=== PATIENT | female | born 1985 | race Caucasian/White ===

== ENCOUNTER 2018-08-23 10:30 | Emergency (ER) | payer SELFPAY ==
--- NOTE | 2018-08-23 10:37 | ED Physician Documentation ---
Fall - HISTORIAN Historian: patient - HPI Stated Complaint: right hand and wrist pain - fall Chief Complaint: Fall Onset: just prior to arrival Where: home Context: slipped (down 3 stairs ) Associated Symptoms:: no loss of consciousness Location of Pain/Injury: upper extremity (hand/wrist (r)) Injury to Right Extremity: wrist, hand Injury to Left Extremity: none Further Comments: yes (She states she missed the last 3 of the stairs and tried to catch her fall with her hand and has pain and a "pulling feeling" in the right hand/wrist area and fingers feel tingly. No OTC meds she has had ice on the area. She has no other complaints. Decreased ROM with wrist due to pain. Sensation is normal per her report) - ROS CONST: no problems NEURO: denies: dizziness, anxiety MS/SKIN/LYMPH: denies: weakness, numbness EYES/ENT: none CVS/RESP: none GI/: denies: nausea, vomiting - PAST HX Past History: none Immunizations: UTD Allergies/Adverse Reactions: Allergies Allergy/AdvReac Type Severity Reaction Status Date / Time latex Allergy Verified 08/23/18 10:50 tomato AdvReac Rash Verified 08/23/18 10:50 Home Medications: Ambulatory Orders Medication Instructions Recorded NK 08/23/18 - SOCIAL HX Smoking History: cigarettes Alcohol Use: none Drug Use: none - FAMILY HX Family History: none - REVIEWED ASSESSMENTS Nursing Assessment Reviewed: Yes Vitals Reviewed: Yes ED Results Lab/Radiology - Radiology Radiology Impressions: Examination: Plain film right wrist History: RIGHT HAND AND WRIST PAIN POST FALLING DOWN STAIRS TODAY. Comparison exams: None available Findings: 3 views of the right wrist demonstrate normal cortical margins. No fracture. No dislocation. No soft tissue abnormality. Impression: No acute osseous abnormality Electronically signed on Aug 23, 2018 11:25:06 AM [employer] by: Zachary Padilla Examination: Plain film right hand History: RIGHT HAND AND WRIST PAIN POST FALLING DOWN STAIRS TODAY. Comparison exams: None available Findings: 3 views of the right hand demonstrate normal cortical margins. No fracture. No dislocation. No soft tissue abnormality. Impression: No acute osseous abnormality Electronically signed on Aug 23, 2018 11:25:51 AM [employer] by: Zachary Padilla Fall Physical Exam - Physical Exam General Appearance: no acute distress, alert Head: non-tender, no swelling Neck: non-tender Eye: TYRONE ENT: nml external inspection Resp/CVS: chest non-tender, breath sounds nml, no resp. distress, heart sounds n ml Abdomen: soft Neuro: oriented x3, CN's nml as tested, director emergency nml Skin: color nml Back: normal inspection Extremities: atraumatic, other (pain to palpation with wrist and supination of hand . Pulse + cap refill + sensation +. No swelling or obvious injury ) Joint: joints nml - Cambridge Coma Score Eyes Open: Spontaneous Speech: Oriented Motor: Obeys Commands Discharge Clincal Impression: Hand pain, right, Wrist pain, right Right wrist sprain Qualifiers: Encounter type: initial encounter Qualified Code(s): S63.501A - Unspecified sprain of right wrist, initial encounter Referrals: Primary Doctor,No [Primary Care Provider] - 2 Days Comments: 1. Tylenol or Ibuprofen as directed for pain 2. Ice for comfort 3. Elevate and rest 4. Follow up with PCP in 2-4 days if no improvement 5. Return to ER for any concerns Condition: Stable Disposition: 01 HOME, SELF-CARE Decision to Admit: NO Date of Decison to Admit: 08/23/18 Decision Time: 11:33
[2018-08-23 10:49] VITALS: BP 95/73
[2018-08-23] MEDS ORDERED: IBUPROFEN 200 MG TABLET PO ONE (11:14)
--- NOTE | 2018-08-23 11:28 | Diagnostic Imaging Report ---
KATHRINE REDDING [facility] [address] [facility].[address] [address] Report Submission Date: Aug 23, 2018 11:25:51 AM CARD TAPE CONVERTER OPERATOR Patient Study Name: EMILY GAVIN Date: Aug 23, 2018 10:50:14 AM CARD TAPE CONVERTER OPERATOR Modality Type: DX Gender: F Description: HAND 3 VIEWS OR MORE : 87 Institution: [facility] Physician: KATHRINE REDDING Examination: Plain film right hand History: RIGHT HAND AND WRIST PAIN POST FALLING DOWN STAIRS TODAY. Comparison exams: None available Findings: 3 views of the right hand demonstrate normal cortical margins. No fracture. No dislocation. No soft tissue abnormality. Impression: No acute osseous abnormality Electronically signed on Aug 23, 2018 11:25:51 AM CARD TAPE CONVERTER OPERATOR by: Zachary GRANT
--- NOTE | 2018-08-23 11:29 | Diagnostic Imaging Report ---
KATHRINE REDDING [facility] [address] [facility].[address] [id number] Report Submission Date: Aug 23, 2018 11:25:06 AM SITE SAFETY MANAGER Patient Study Name: EMILY GAVIN Date: Aug 23, 2018 10:50:00 AM SITE SAFETY MANAGER Modality Type: DX Gender: F Description: WRIST 3 VIEWS : 87 Institution: [facility] Physician: KATHRINE REDDING Examination: Plain film right wrist History: RIGHT HAND AND WRIST PAIN POST FALLING DOWN STAIRS TODAY. Comparison exams: None available Findings: 3 views of the right wrist demonstrate normal cortical margins. No fracture. No dislocation. No soft tissue abnormality. Impression: No acute osseous abnormality Electronically signed on Aug 23, 2018 11:25:06 AM SITE SAFETY MANAGER by: Zachary GRANT
== END 2018-08-23 11:41 | disposition home or self-care (01) ==
LOC: ED 10:30
DX: S63.501A Unspecified sprain of right wrist, initial encounter (principal); M79.641 Pain in right hand; W10.9XXA Fall (on) (from) unspecified stairs and steps, initial encounter; Y93.01 Activity, walking, marching and hiking; Y92.009 Unspecified place in unspecified non-institutional (private) residence as the place of occurrence of the external cause
CPT/HCPCS: 29125; 73110; 73130; 99283